=== PATIENT | female | born 1985 | race Caucasian/White ===

== ENCOUNTER 2022-01-28 20:51 | Emergency (ER) | payer SELFPAY ==
[2022-01-28] MEDS ORDERED: Acetaminophen 500 MG TAB ONE (21:17)
== END 2022-01-28 22:34 | disposition home or self-care (01) ==
LOC: ERS 20:51
DX: S01.112A Laceration without foreign body of left eyelid and periocular area, initial encounter (principal); W19.XXXA Unspecified fall, initial encounter
CPT/HCPCS: 12011; 70450